=== PATIENT | male | born 1965 | race Caucasian/White ===

== ENCOUNTER → 2016-08-22 | Outpatient (CLI) | payer MEDICARE ==
[~2016-08-22] VITALS: Ht 185.4 cm; Wt 99.8 kg
[~2016-08-22] MED LIST: LIDOCAINE 2% INJ 100 MG/5 ML SDV (FOR ANES.) As Ordered ONE; NS 1,000 ML IV SCH; PROPOFOL 200 MG/20 ML VIAL As Ordered ONE
--- NOTE | 2016-08-22 09:59 | ROOR ---
Patient Name: Arsenio Sauer Procedure Date: 08/22/2016 9:37 AM Date of : 1965 Age: 50 Room: [facility] Gender: Male Note Status: Finalized Procedure: Colonoscopy to 60 cms(Aborted due to Poor Bowel Prep) Indications: High risk colon cancer surveillance: Personal history of colonic polyps, High risk colon cancer surveillance: Personal history of adenoma with high grade dysplasia Providers: Marcos Garces MD Referring MD: LYLY NIÑO NP Requesting Provider: Medicines: Monitored Anesthesia Care Complications: No immediate complications. Procedure: Pre-Anesthesia Assessment: - The heart rate, respiratory rate, oxygen saturations, blood pressure, adequacy of pulmonary ventilation, and response to care were monitored throughout the procedure. The Colonoscope was introduced through the anus with the intention of advancing to the cecum. The scope was advanced to the splenic flexure before the procedure was aborted. Medications were given. The colonoscopy was performed without difficulty. The patient tolerated the procedure well. The quality of the bowel preparation was inadequate. Findings: The perianal and digital rectal examinations were normal. Liquid stool was found in the rectum, in the recto-sigmoid colon, in the sigmoid colon and in the descending colon, precluding visualization. The exam was otherwise without abnormality. Impression: - Preparation of the colon was inadequate. - Stool in the rectum, in the recto-sigmoid colon, in the sigmoid colon and in the descending colon. - The examination was otherwise normal. - No specimens collected. - The procedure was aborted due to inadequate bowel prep. Recommendation: - Discharge patient to home. - Continue present medications. - Repeat colonoscopy in 1 year for surveillance. - Return to referring physician. - Continue present medications. - The findings and recommendations were discussed with the patient's family. Marcos Garces MD Marcos Garces MD 08/22/2016 9:58:59 AM This report has been signed electronically. Number of Addenda: 0 Note Initiated On: 08/22/2016 9:37 AM Estimated Blood Loss: Estimated blood loss: none.
[2016-08-22 10:35] VITALS: BP 135/97
== END ==
LOC: M OPP 08:34
PROVIDERS: ATTEND Internal Medicine Gastroenterology
DX: Z12.11 Encounter for screening for malignant neoplasm of colon (principal); Z86.010 Personal history of colon polyps; Z53.8 Procedure and treatment not carried out for other reasons; K64.9 Unspecified hemorrhoids; F17.200 Nicotine dependence, unspecified, uncomplicated; K21.9 Gastro-esophageal reflux disease without esophagitis; M54.2 Cervicalgia; G47.63 Sleep related bruxism

== ENCOUNTER 2016-09-18 11:36 | Inpatient (IN) | payer MEDICARE ==
[~2016-09-18] VITALS: Ht 185.4 cm; Wt 98.4 kg
[2016-09-18] VITALS (11 sets, daily range): BP systolic 110–126; BP diastolic 58–70
[2016-09-18] MEDS ORDERED: TRAM50TA2 PO (11:43)
[2016-09-18] MEDS ORDERED: LYRI100C10 PO (11:43)
[2016-09-18] MEDS ORDERED: ONDANSETRON 4MG/2ML VIAL (J2405) IV ONE (11:45)
[2016-09-18] MEDS ORDERED: PANTOPRAZOLE 40MG INJ (PROTONIX) (C9113) IV ONE (11:45)
[2016-09-18] MEDS ORDERED: NS 1,000 ML IV ONE ×2 (11:45→12:15)
[2016-09-18 11:52] LABS: BASO # 0.1 K/mm3 (0.0-0.2); BASO % 0.4 % (0.0-1.0); EOS # 0.2 K/mm3 (0.0-0.50); EOS % 1.4 % (0.0-3.0); LARGE UNSTAINED CELL # 0.3 K/mm3 (0.0-0.4); LARGE UNSTAINED CELL % 1.7 % (0.0-4.0); LYMPH # 7.1 K/mm3 (1.5-4.5); LYMPH % 45.7 % (24.0-44.0); MEAN CORPUSCULAR HEMOGLOBIN 31.7 pg (27.0-33.0); MEAN CORPUSCULAR HGB CONC 33.3 g/dl (32.0-36.5); MEAN CORPUSCULAR VOLUME 95.2 fl (80.0-96.0); MONO # 0.4 K/mm3 (0.0-0.8); MONO % 2.9 % (0.0-5.0); NEUTROPHILS # 7.2 K/mm3 (1.8-7.7); NEUTROPHILS % 47.9 % (36.0-66.0); PLATELET COUNT, AUTOMATED 289 k/mm3 (150-450); RED CELL DISTRIBUTION WIDTH 13.6 % (11.5-14.5)
[2016-09-18 11:59] LABS: INR 0.96
[2016-09-18] MEDS ORDERED: OCTREOTIDE ACETATE 50 MCG/ML VIAL (J2354) IV ONE (12:00)
[2016-09-18] MEDS: PANTOPRAZOLE SODIUM 40 MG in D5W MINI-BAG PLUS 50 ML IV SCH ×3 (12:00→22:10)
[2016-09-18 12:18] LABS: ALBUMIN 2.4 GM/DL (3.2-5.2); ALBUMIN/GLOBULIN RATIO 0.86 (1.00-1.93); ALKALINE PHOSPHATASE 63 U/L (45-117); ALT/SGPT 49 U/L (12-78); ANION GAP 7 MEQ/L (8-16); AST/SGOT 29 U/L (15-37); BILIRUBIN,DIRECT < 0.1 MG/DL (0.0-0.2); BILIRUBIN,TOTAL 0.2 MG/DL (0.2-1.0); BLOOD UREA NITROGEN 19 MG/DL (7-18); CALCIUM LEVEL 7.2 MG/DL (8.5-10.1); CARBON DIOXIDE LEVEL 25 MEQ/L (21-32); CHLORIDE LEVEL 109 MEQ/L (98-107); CREATININE FOR GFR 1.05 MG/DL (0.70-1.30); GLOMERULAR FILTRATION RATE > 60.0 (>56); GLUCOSE, FASTING 184 MG/DL (70-105); POTASSIUM SERUM 4.4 MEQ/L (3.5-5.1); SODIUM LEVEL 141 MEQ/L (136-145); TOTAL PROTEIN 5.2 GM/DL (6.4-8.2)
--- NOTE | 2016-09-18 13:45 | HPEPDOC ---
General Date of Admission 09/18/16 Primary Care Physician: Marleen Dinero Attending Physician: BEST JACOBSON MD Chief Complaint The patient is a 51-year-old male admitted with a reason for visit of Vomiting. Source: Patient, Family Exam Limitations: No limitations Timing/Duration: 1-3 hours Severity: Severe Associated Symptoms: Nausea, Vomiting (of bright red blood) History of Present Illness This is a 51-year-old gentleman, who is a patient of nurse practitioner Rosemary Dinero, who presents to the ER after vomiting profuse amounts of bright red blood. Patient states that this morning he felt slightly nauseated, sat down on the toilet, and then began vomiting profuse amounts of bright red blood. ER states that he presented covered in blood, with blood pressures in the 80s. He was started on octreotide and Protonix. He was transfused 2 units of pack red blood cells in the ER. His blood pressures increased to the 90s with fluid resuscitation. Dr. Garces was called urgently, and he will be performing an upper endoscopy today. Patient denies any history of heavy drinking, persistent , chronic abdominal pain, family history of arteriovenous malformations, history of Crohn's disease, or recent retching. Patient's states that he is generally healthy, and takes no medications. Patient confirms that he has no major chronic medical conditions, and denies substance use or history of gastrointestinal bleeding. Home Medications Scheduled PRN Pregabalin (Lyrica) 100 Mg Cap 100 MG PO BIDP PRN PRN PAIN (Reported) Tramadol HCl (Tramadol HCl) 50 Mg Tab 50 MG PO TID PRN PRN PAIN (Reported) Allergies Coded Allergies: No Known Allergies (Unverified , 01/18/13) Past Medical History Medical History Medical history: 1. Smoker 2. Degenerative disc disease 3. Chronic low back pain with sciatica Surgical History Surgical history: 1. Colonoscopy by Dr. Garces 2015 Family History Family history: Father: of suicide, history of epilepsy Mother: Daughter: Alive 2 sisters: One sister passed from lung cancer; the remaining sister healthy Social History * Smoker: current smoker Alcohol: Denies Drugs: denies Recent Travel/Sick Contacts: Denies: Recent sick contacts, Recent travel Psychosocial History: No pertinent psych hx Social history: 1. Smoker approximately quarter pack per day 2. Denies alcohol use 3. 4. On disability Review of Symptoms Constitutional: Denies: Chills, Fever, Malaise, Night Sweats, Weakness Eyes: Denies: Vision change ENT: Denies: Head Aches Skin: Denies: Breakdown, Bruising, Itching, Jaundice, Rash Pulmonary: Denies: Cough, Dyspnea, Pleuritic Chest Pain Cardiovascular: Reports: Lt Headedness, Denies: Chest Pain, Palpitations Gastrointestinal: Reports: Nausea, Vomiting (bright red blood), Denies: Abdominal Pain, Constipation, Diarrhea, Hematochezia, Melena Genitourinary: Denies: Dysuria, Frequency Other systems 10 point review systems is otherwise negative Physical Examination General Exam: Positive: Cooperative, Moderate Distress, Other (somnolent but arousable) Eye Exam: Positive: EOMI, PERRLA ENT Exam: Positive: Atraumatic, Mucous membr. moist/pink Neck Exam: Positive: Supple, Negative: JVD, thyromegaly Chest Exam: Positive: Clear to auscultation, Normal air movement, Negative: Rales, Rhonchi, Wheezing Heart Exam: Positive: Normal S1, Normal S2, Rate Normal, Regular Rhythm, Negative: Murmurs, Rubs Abdomen Exam: Positive: Normal bowel sounds, Soft, Negative: Hepatospenomegaly, Mass, Tenderness Extremity Exam: Negative: Clubbing, Cyanosis, Edema Skin Exam: Negative: Nl turgor and temperature (cold and clammy) Psych Exam: Positive: Oriented x 3, Negative: Mental status NL (somnolent but arousable; answers questions appropriately) Vital Signs Vital Signs Date Time Temp Pulse Resp B/P Pulse Ox O2 Delivery O2 Flow Rate FiO2 09/18/16 12:34 96.3 20 09/18/16 12:31 72 94 09/18/16 12:27 96/53 09/18/16 11:56 Room Air Laboratory Data Labs 24H Laboratory Tests 2 09/18/16 11:41: Activated Partial Thromboplast Time 23.0L, Aspartate Amino Transf (AST/SGOT) 29 , Alanine Aminotransferase (ALT/SGPT) 49, Alkaline Phosphatase 63, Total Bilirubin 0.2, Direct Bilirubin < 0.1, Albumin 2.4L, Albumin/Globulin Ratio 0.86L, Anion Gap 7L, White Blood Count 15.0H, Red Blood Count 3.78L, Hemoglobin 12.0L, Hematocrit 36.0L, Mean Corpuscular Volume 95.2, Mean Corpuscular Hemoglobin 31.7, Mean Corpuscular Hemoglobin Concent 33.3, Red Cell Distribution Width 13.6, Platelet Count 289, Neutrophils (%) (Auto) 47.9, Lymphocytes (%) (Auto) 45.7H, Monocytes (%) (Auto) 2.9, Eosinophils (%) (Auto) 1.4, Basophils (%) (Auto) 0.4, Neutrophils # (Auto) 7.2, Lymphocytes # (Auto) 7.1H, Monocytes # (Auto) 0.4, Eosinophils # (Auto) 0.2, Basophils # (Auto) 0.1, Calcium Level 7.2L, Creatine Kinase MB 1.0, Creatine Kinase MB Relative Index 1.69, Glomerular Filtration Rate > 60.0, Large Unclassified Cells # 0.3, Large Unclassified Cells % 1.7, Lipase 798H, Prothromb Time International Ratio 0.96, Prothrombin Time 12.9, Total Creatine Kinase 59, Total Protein 5.2L, Troponin I < 0.02 CBC/BMP Laboratory Tests 09/18/16 11:41 Red Blood Count 3.78 L, Mean Corpuscular Volume 95.2, Mean Corpuscular Hemoglobin 31.7, Mean Corpuscular Hemoglobin Concent 33.3, Red Cell Distribution Width 13.6, Neutrophils (%) (Auto) 47.9, Lymphocytes (%) (Auto) 45.7 H, Monocytes (%) (Auto) 2.9, Eosinophils (%) (Auto) 1.4, Basophils (%) ( Auto) 0.4, Neutrophils # (Auto) 7.2, Lymphocytes # (Auto) 7.1 H, Monocytes # ( Auto) 0.4, Eosinophils # (Auto) 0.2, Basophils # (Auto) 0.1 Problems (1) UGIB (upper gastrointestinal bleed) Status: Acute Problem Specific Plan: Consult Specialist Problem Text: Patiently with active upper GI bleed. [facility] has been contacted and will perform urgent upper endoscopy. Patient adamantly denies any alcohol use. He has no history of Crohn's disease or family history of Crohn's, which would make aortic fistula unlikely. No family history of AV malformations. No history of chronic abdominal pain, reflux, or history of gastric ulcers. Patient denies any substance use. Patient transfused 2 units packed red blood cells in the ER. Initial blood pressures in the 80s, however now stable in the low 100s. Hemoglobin on admission was 12, although likely much less than this, once patient is volume resuscitated. No widening of mediastinum on chest x-ray. -Admit to ICU due to hemodynamically unstable state -Every 6 hour CBC -Transfuse for active symptoms, hypotension, or hemoglobin less than 8 -Protonix drip -Octreotide drip -Upper endoscopy to be done by Dr. Garces this afternoon -Will send for CT angiogram if endoscopy is not revealing -Condition is guarded (2) Radiculopathy Status: Chronic Problem Text: Continue home Lyrica for radiculopathy (3) Low back pain Status: Chronic Problem Text: Continue home tramadol for chronic low back pain Plan / VTE VTE Prophylaxis Ordered?: No VTE Exclusion Pharmacological: Bleeding Risk BEST JACOBSON MD Sep 18, 2016 13:44
--- NOTE | 2016-09-18 14:21 | REP ---
AP PORTABLE CHEST: 09/18/2016. Comparison: 01/20/2015, 08/19/2005 chest x-ray. Clinical history: Preoperative chest. Findings: Single portable view shows the lung anderson well inflated without pleural effusion, acute infiltrate, atelectasis or mass. Heart, mediastinal, and hilar contours are normal. Airway is intact. The bony thorax shows no focal lesion. Impression: 1. No acute cardiopulmonary change. Signed by Jeremy Jorge MD 09/18/2016 07:32 P
[2016-09-18] MEDS ORDERED: ONDANSETRON 4MG/2ML VIAL (J2405) As Ordered ONE (14:23)
[2016-09-18] MEDS ORDERED: MIDAZOLAM INJ 2 MG/2 ML VIAL (J2250) As Ordered ONE (14:23)
[2016-09-18] MEDS ORDERED: PROPOFOL 200 MG/20 ML VIAL As Ordered ONE (14:23)
[2016-09-18] MEDS ORDERED: fentaNYL 100 MCG/2 ML INJECTION (J3010) As Ordered ONE (14:23)
[2016-09-18] MEDS ORDERED: METOCLOPRAMIDE INJ 10MG/2ML VIAL (J2765) As Ordered ONE (14:23)
[2016-09-18] MEDS ORDERED: LIDOCAINE 2% INJ 100 MG/5 ML SDV (FOR ANES.) As Ordered ONE (14:24)
[2016-09-18] MEDS ORDERED: SUCCINYLCHOLINE 100 MG/5 ML SYRINGE (J0330) As Ordered ONE (14:24)
[2016-09-18] MEDS ORDERED: PHENYLephrine HCL 500 MCG/5 ML (100MCG/ML) SYRINGE (J2370) As Ordered ONE (14:24)
[2016-09-18] MEDS ORDERED: OCTREOTIDE ACETATE 1,200 MCG in NS 238.8 ML IV SCH (14:30)
[2016-09-18] MEDS ORDERED: ONDANSETRON 4MG/2ML VIAL (J2405) IV PRN (15:15)
[2016-09-18] MEDS ORDERED: LR 1,000 ML IV SCH (15:15)
[2016-09-18 17:40] LABS: BASO % 0.2 % (0.0-1.0); EOS % 0.4 % (0.0-3.0); LARGE UNSTAINED CELL # 0.1 K/mm3 (0.0-0.4); LARGE UNSTAINED CELL % 0.9 % (0.0-4.0); LYMPH # 2.6 K/mm3 (1.5-4.5); LYMPH % 21.4 % (24.0-44.0); MEAN CORPUSCULAR HEMOGLOBIN 31.1 pg (27.0-33.0); MEAN CORPUSCULAR HGB CONC 33.6 g/dl (32.0-36.5); MEAN CORPUSCULAR VOLUME 92.5 fl (80.0-96.0); MONO # 0.3 K/mm3 (0.0-0.8); MONO % 2.8 % (0.0-5.0); NEUTROPHILS # 8.7 K/mm3 (1.8-7.7); NEUTROPHILS % 74.4 % (36.0-66.0); PLATELET COUNT, AUTOMATED 199 k/mm3 (150-450); RED CELL DISTRIBUTION WIDTH 13.7 % (11.5-14.5); WHITE BLOOD COUNT 11.7 K/mm3 (4.0-10.0)
[2016-09-18] MEDS ORDERED: KETOROLAC 30 MG/ML VIAL (J1885) As Ordered ONE (18:01)
[2016-09-18] MEDS: KETOROLAC 30 MG/ML VIAL (J1885) IV PRN (18:03)
--- NOTE | 2016-09-18 21:12 | ECGEPIP ---
Stationary ECG Study [facility] - ED Test Date: 2016-09-18 Pat Name: JARED LANDEROS Department: Room: - Gender: M C Software Engineer: scottie : 1965 Requested By: Demetrio Lock Order Number: [id number] Reading MD: Viridiana Ann Measurements Intervals Caroleen Rate: 74 P: 63 IN: 136 QRS: 51 QRSD: 90 T: 47 QT: 364 QTc: 404 Interpretive Statements SINUS RHYTHM NO PRIOR FOR COMPARISON Electronically Signed On 09-18-2016 21:12:02 EDT by Viridiana Ann
[2016-09-18 23:41] LABS: BASO % 0.2 % (0.0-1.0); EOS # 0.1 K/mm3 (0.0-0.50); EOS % 0.7 % (0.0-3.0); LARGE UNSTAINED CELL # 0.1 K/mm3 (0.0-0.4); LYMPH % 22.2 % (24.0-44.0); MEAN CORPUSCULAR HEMOGLOBIN 30.9 pg (27.0-33.0); MEAN CORPUSCULAR HGB CONC 33.5 g/dl (32.0-36.5); MEAN CORPUSCULAR VOLUME 92.2 fl (80.0-96.0); MONO # 0.4 K/mm3 (0.0-0.8); NEUTROPHILS # 9.4 K/mm3 (1.8-7.7); NEUTROPHILS % 72.9 % (36.0-66.0); PLATELET COUNT, AUTOMATED 194 k/mm3 (150-450); RED CELL DISTRIBUTION WIDTH 13.8 % (11.5-14.5); WHITE BLOOD COUNT 12.9 K/mm3 (4.0-10.0)
[2016-09-19] VITALS (9 sets, daily range): BP systolic 118–147; BP diastolic 57–71
[2016-09-19] MEDS: KETOROLAC 30 MG/ML VIAL (J1885) IV PRN ×3 (00:09→16:49)
[2016-09-19] MEDS: PANTOPRAZOLE SODIUM 40 MG in D5W MINI-BAG PLUS 50 ML IV SCH ×4 (03:35→16:49)
[2016-09-19 05:20] LABS: ALBUMIN 2.5 GM/DL (3.2-5.2); ALBUMIN/GLOBULIN RATIO 0.93 (1.00-1.93); ALKALINE PHOSPHATASE 57 U/L (45-117); ALT/SGPT 51 U/L (12-78); ANION GAP 9 MEQ/L (8-16); AST/SGOT 33 U/L (15-37); BILIRUBIN,TOTAL 0.2 MG/DL (0.2-1.0); CALCIUM LEVEL 7.2 MG/DL (8.5-10.1); CARBON DIOXIDE LEVEL 26 MEQ/L (21-32); CHLORIDE LEVEL 107 MEQ/L (98-107); GLOMERULAR FILTRATION RATE > 60.0 (>56); GLUCOSE, FASTING 86 MG/DL (70-105); POTASSIUM SERUM 3.9 MEQ/L (3.5-5.1); SODIUM LEVEL 142 MEQ/L (136-145); TOTAL PROTEIN 5.2 GM/DL (6.4-8.2)
[2016-09-19 05:28] LABS: BLOOD UREA NITROGEN 45 MG/DL (7-18)
[2016-09-19 05:34] LABS: BASO % 0.2 % (0.0-1.0); EOS # 0.1 K/mm3 (0.0-0.50); EOS % 1.1 % (0.0-3.0); LARGE UNSTAINED CELL # 0.2 K/mm3 (0.0-0.4); LARGE UNSTAINED CELL % 1.3 % (0.0-4.0); LYMPH # 4.7 K/mm3 (1.5-4.5); LYMPH % 33.7 % (24.0-44.0); MEAN CORPUSCULAR HEMOGLOBIN 31.2 pg (27.0-33.0); MEAN CORPUSCULAR HGB CONC 33.7 g/dl (32.0-36.5); MEAN CORPUSCULAR VOLUME 92.4 fl (80.0-96.0); MONO # 0.4 K/mm3 (0.0-0.8); MONO % 3.1 % (0.0-5.0); NEUTROPHILS # 8.1 K/mm3 (1.8-7.7); NEUTROPHILS % 60.6 % (36.0-66.0); PLATELET COUNT, AUTOMATED 193 k/mm3 (150-450); RED CELL DISTRIBUTION WIDTH 13.8 % (11.5-14.5); WHITE BLOOD COUNT 13.4 K/mm3 (4.0-10.0)
--- NOTE | 2016-09-19 08:35 | ROOR ---
Patient Name: Arsenio Sauer Procedure Date: 09/18/2016 1:44 PM Date of : 1965 Age: 51 Gender: Male Note Status: Closing Agent Override Procedure: Upper GI endoscopy + Hemoclips. Indications: Active gastrointestinal bleeding Providers: Marcos Garces MD Referring MD: 1. No Referring Physician 1. No Referring Physician, Admin. Requesting Provider: Medicines: General Anesthesia Complications: No immediate complications. Procedure: Pre-Anesthesia Assessment: - The heart rate, respiratory rate, oxygen saturations, blood pressure, adequacy of pulmonary ventilation, and response to care were monitored throughout the procedure. The Endoscope was introduced through the mouth, and advanced to the second part of duodenum. The upper GI endoscopy was accomplished without difficulty. The patient tolerated the procedure well. Findings: The Z-line was regular and was found 40 cm from the incisors. Clotted blood was found in the cardia and in the gastric fundus. One non-bleeding cratered gastric ulcer with adherent clot was found in the gastric fundus. For hemostasis, two hemostatic clips were successfully placed (MR conditional). There was no bleeding at the end of the procedure. The exam of the duodenum was otherwise normal. Impression: - Z-line regular, 40 cm from the incisors. - Clotted blood in the cardia and in the gastric fundus. - Non-bleeding gastric ulcer with adherent clot. Clips (MR conditional) were placed. - No specimens collected. Recommendation: - Return patient to ICU for ongoing care. - Continue present medications. - The findings and recommendations were discussed with the patient's family. Marcos Garces MD Marcos Garces MD 09/18/2016 3:00:43 PM This report has been signed electronically. Number of Addenda: 0 Note Initiated On: 09/18/2016 1:44 PM Estimated Blood Loss: Estimated blood loss: none.
[2016-09-19 11:31] LABS: BASO % 0.2 % (0.0-1.0); EOS # 0.2 K/mm3 (0.0-0.50); EOS % 1.7 % (0.0-3.0); LARGE UNSTAINED CELL # 0.1 K/mm3 (0.0-0.4); LARGE UNSTAINED CELL % 1.2 % (0.0-4.0); LYMPH # 3.3 K/mm3 (1.5-4.5); LYMPH % 33.4 % (24.0-44.0); MEAN CORPUSCULAR HEMOGLOBIN 31.1 pg (27.0-33.0); MEAN CORPUSCULAR HGB CONC 34.5 g/dl (32.0-36.5); MEAN CORPUSCULAR VOLUME 90.1 fl (80.0-96.0); MONO # 0.3 K/mm3 (0.0-0.8); MONO % 2.8 % (0.0-5.0); NEUTROPHILS # 5.9 K/mm3 (1.8-7.7); NEUTROPHILS % 60.7 % (36.0-66.0); PLATELET COUNT, AUTOMATED 190 k/mm3 (150-450); RED CELL DISTRIBUTION WIDTH 13.6 % (11.5-14.5); WHITE BLOOD COUNT 9.7 K/mm3 (4.0-10.0)
[2016-09-19 17:02] LABS: BASO % 0.2 % (0.0-1.0); EOS # 0.2 K/mm3 (0.0-0.50); EOS % 1.7 % (0.0-3.0); LARGE UNSTAINED CELL # 0.1 K/mm3 (0.0-0.4); LARGE UNSTAINED CELL % 1.5 % (0.0-4.0); LYMPH # 3.7 K/mm3 (1.5-4.5); LYMPH % 39.9 % (24.0-44.0); MEAN CORPUSCULAR HEMOGLOBIN 31.3 pg (27.0-33.0); MEAN CORPUSCULAR HGB CONC 34.8 g/dl (32.0-36.5); MEAN CORPUSCULAR VOLUME 89.9 fl (80.0-96.0); MONO # 0.2 K/mm3 (0.0-0.8); MONO % 2.7 % (0.0-5.0); NEUTROPHILS # 4.8 K/mm3 (1.8-7.7); PLATELET COUNT, AUTOMATED 196 k/mm3 (150-450); RED CELL DISTRIBUTION WIDTH 13.6 % (11.5-14.5); WHITE BLOOD COUNT 8.9 K/mm3 (4.0-10.0)
[2016-09-19] MEDS ORDERED: traMADol 50 MG TAB PO PRN (17:30)
--- NOTE | 2016-09-19 17:30 | IPNPDOC ---
Subjective Date Seen The patient was seen on 09/19/16. Subjective Chief Complaint/HPI The patient is a 51-year-old male admitted with a reason for visit of Gi Bleeding. Events since last encounter Patient is doing well after EGD, and clipping of gastric ulcer. Patient states he feels well. He has been tolerating a diet. Constitutional: Denies: Chills, Fever, Malaise Skin: Denies: Rash Pulmonary: Denies: Cough, Dyspnea Cardiovascular: Denies: Chest Pain, Lt Headedness, Orthopnea, Palpitations Gastrointestinal: Denies: Abdominal Pain, Constipation, Diarrhea, Hematochezia , Melena, Nausea, Vomiting Other systems 10 point review systems otherwise negative Objective Physical Examination General Exam: Positive: Cooperative, No Acute Distress Eye Exam: Positive: EOMI, PERRLA ENT Exam: Positive: Atraumatic, Mucous membr. moist/pink Neck Exam: Positive: Supple, Negative: JVD, thyromegaly Chest Exam: Positive: Clear to auscultation, Normal air movement, Negative: Rales, Rhonchi, Wheezing Heart Exam: Positive: Normal S1, Normal S2, Rate Normal, Regular Rhythm, Negative: Murmurs, Rubs Abdomen Exam: Positive: Normal bowel sounds, Soft, Negative: Hepatospenomegaly, Mass, Tenderness Extremity Exam: Negative: Clubbing, Cyanosis, Edema Skin Exam: Positive: Nl turgor and temperature Psych Exam: Positive: Mental status NL, Oriented x 3 Assessment /Plan Problems (1) UGIB (upper gastrointestinal bleed) Status: Acute Problem Specific Plan: Consult Specialist Problem Text: Patiently admitted 09/18/2016 with active upper GI bleed. Dr. Garces performed endoscopy, and clipped a gastric ulcer. Bleeding since resolved. Patient denies any current symptoms. -Transfer to floor -Oral Protonix -Plan for discharge home tomorrow if hemoglobin is stable and no active signs of bleeding (2) Radiculopathy Status: Chronic Problem Text: Continue home Lyrica for radiculopathy (3) Low back pain Status: Chronic Problem Text: Continue home tramadol for chronic low back pain Plan/VTE VTE Prophylaxis Ordered?: No VTE Exclusion Pharmacological: Bleeding Risk Disposition Home 09/20/16 if hemoglobin stable and no active signs of bleeding VS, I&O, 24H, Fishbone Vital Signs/I&O Vital Signs Date Time Temp Pulse Resp B/P Pulse Ox O2 Delivery O2 Flow Rate FiO2 09/19/16 12:00 98.9 92 20 133/60 97 Room Air I&O- Last 24 Hours up to 6 AM 09/19/16 06:00 Intake Total 2698 ml Output Total 860 ml Balance 1838 ml Laboratory Data 24H LABS Laboratory Tests 2 09/18/16 23:05: White Blood Count 12.9H, Red Blood Count 3.41L, Hemoglobin 10.5L, Hematocrit 31.4L, Mean Corpuscular Volume 92.2, Mean Corpuscular Hemoglobin 30.9, Mean Corpuscular Hemoglobin Concent 33.5, Red Cell Distribution Width 13.8, Platelet Count 194, Neutrophils (%) (Auto) 72.9H, Lymphocytes (%) (Auto) 22.2L, Monocytes (%) (Auto) 3.0, Eosinophils (%) (Auto) 0.7, Basophils (%) (Auto) 0.2, Neutrophils # (Auto) 9.4H, Lymphocytes # (Auto) 3.0, Monocytes # (Auto) 0.4, Eosinophils # (Auto) 0.1, Basophils # (Auto) 0.0, Large Unclassified Cells # 0.1 , Large Unclassified Cells % 1.0 09/19/16 04:29: White Blood Count 13.4H, Red Blood Count 3.33L, Hemoglobin 10.4L, Hematocrit 30.7L, Mean Corpuscular Volume 92.4, Mean Corpuscular Hemoglobin 31.2, Mean Corpuscular Hemoglobin Concent 33.7, Red Cell Distribution Width 13.8, Platelet Count 193, Neutrophils (%) (Auto) 60.6, Lymphocytes (%) (Auto) 33.7, Monocytes ( %) (Auto) 3.1, Eosinophils (%) (Auto) 1.1, Basophils (%) (Auto) 0.2, Neutrophils # (Auto) 8.1H, Lymphocytes # (Auto) 4.7H, Monocytes # (Auto) 0.4, Eosinophils # (Auto) 0.1, Basophils # (Auto) 0.0, Large Unclassified Cells # 0.2 , Large Unclassified Cells % 1.3, Blood Urea Nitrogen 45#H, Creatinine 0.80, Sodium Level 142, Potassium Level 3.9, Chloride Level 107, Carbon Dioxide Level 26, Calcium Level 7.2L, Aspartate Amino Transf (AST/SGOT) 33, Alanine Aminotransferase (ALT/SGPT) 51, Alkaline Phosphatase 57, Total Bilirubin 0.2, Total Protein 5.2L, Albumin 2.5L, Albumin/Globulin Ratio 0.93L, Anion Gap 9, Glomerular Filtration Rate > 60.0 09/19/16 11:19: White Blood Count 9.7, Red Blood Count 3.35L, Hemoglobin 10.4L, Hematocrit 30.2L , Mean Corpuscular Volume 90.1, Mean Corpuscular Hemoglobin 31.1, Mean Corpuscular Hemoglobin Concent 34.5, Red Cell Distribution Width 13.6, Platelet Count 190, Neutrophils (%) (Auto) 60.7, Lymphocytes (%) (Auto) 33.4, Monocytes ( %) (Auto) 2.8, Eosinophils (%) (Auto) 1.7, Basophils (%) (Auto) 0.2, Neutrophils # (Auto) 5.9, Lymphocytes # (Auto) 3.3, Monocytes # (Auto) 0.3, Eosinophils # (Auto) 0.2, Basophils # (Auto) 0.0, Large Unclassified Cells # 0.1 , Large Unclassified Cells % 1.2 09/19/16 16:52: White Blood Count 8.9, Red Blood Count 3.23L, Hemoglobin 10.1L, Hematocrit 29.0L , Mean Corpuscular Volume 89.9, Mean Corpuscular Hemoglobin 31.3, Mean Corpuscular Hemoglobin Concent 34.8, Red Cell Distribution Width 13.6, Platelet Count 196, Neutrophils (%) (Auto) 54.0, Lymphocytes (%) (Auto) 39.9, Monocytes ( %) (Auto) 2.7, Eosinophils (%) (Auto) 1.7, Basophils (%) (Auto) 0.2, Neutrophils # (Auto) 4.8, Lymphocytes # (Auto) 3.7, Monocytes # (Auto) 0.2, Eosinophils # (Auto) 0.2, Basophils # (Auto) 0.0, Large Unclassified Cells # 0.1 , Large Unclassified Cells % 1.5 CBC/BMP Laboratory Tests 09/18/16 23:05 Red Blood Count 3.41 L, Mean Corpuscular Volume 92.2, Mean Corpuscular Hemoglobin 30.9, Mean Corpuscular Hemoglobin Concent 33.5, Red Cell Distribution Width 13.8, Neutrophils (%) (Auto) 72.9 H, Lymphocytes (%) (Auto) 22.2 L, Monocytes (%) (Auto) 3.0, Eosinophils (%) (Auto) 0.7, Basophils (%) ( Auto) 0.2, Neutrophils # (Auto) 9.4 H, Lymphocytes # (Auto) 3.0, Monocytes # ( Auto) 0.4, Eosinophils # (Auto) 0.1, Basophils # (Auto) 0.0 09/19/16 04:29 Red Blood Count 3.33 L, Mean Corpuscular Volume 92.4, Mean Corpuscular Hemoglobin 31.2, Mean Corpuscular Hemoglobin Concent 33.7, Red Cell Distribution Width 13.8, Neutrophils (%) (Auto) 60.6, Lymphocytes (%) (Auto) 33.7, Monocytes (%) (Auto) 3.1, Eosinophils (%) (Auto) 1.1, Basophils (%) (Auto ) 0.2, Neutrophils # (Auto) 8.1 H, Lymphocytes # (Auto) 4.7 H, Monocytes # (Auto ) 0.4, Eosinophils # (Auto) 0.1, Basophils # (Auto) 0.0, Calcium Level 7.2 L, Aspartate Amino Transf (AST/SGOT) 33, Alanine Aminotransferase (ALT/SGPT) 51, Alkaline Phosphatase 57, Total Bilirubin 0.2, Total Protein 5.2 L, Albumin 2.5 L 09/19/16 11:19 Red Blood Count 3.35 L, Mean Corpuscular Volume 90.1, Mean Corpuscular Hemoglobin 31.1, Mean Corpuscular Hemoglobin Concent 34.5, Red Cell Distribution Width 13.6, Neutrophils (%) (Auto) 60.7, Lymphocytes (%) (Auto) 33.4, Monocytes (%) (Auto) 2.8, Eosinophils (%) (Auto) 1.7, Basophils (%) (Auto ) 0.2, Neutrophils # (Auto) 5.9, Lymphocytes # (Auto) 3.3, Monocytes # (Auto) 0.3, Eosinophils # (Auto) 0.2, Basophils # (Auto) 0.0 09/19/16 16:52 Red Blood Count 3.23 L, Mean Corpuscular Volume 89.9, Mean Corpuscular Hemoglobin 31.3, Mean Corpuscular Hemoglobin Concent 34.8, Red Cell Distribution Width 13.6, Neutrophils (%) (Auto) 54.0, Lymphocytes (%) (Auto) 39.9, Monocytes (%) (Auto) 2.7, Eosinophils (%) (Auto) 1.7, Basophils (%) (Auto ) 0.2, Neutrophils # (Auto) 4.8, Lymphocytes # (Auto) 3.7, Monocytes # (Auto) 0.2, Eosinophils # (Auto) 0.2, Basophils # (Auto) 0.0 BEST JACOBSON MD Sep 19, 2016 17:29
[2016-09-19] MEDS: PREGABALIN 100 MG CAP (LYRICA) PO PRN (18:45)
[2016-09-19] MEDS: PANTOPRAZOLE 40MG TAB (PROTONIX) PO SCH (21:35)
[2016-09-20 04:00] VITALS: BP 108/64
[2016-09-20] MEDS: PREGABALIN 100 MG CAP (LYRICA) PO PRN (06:21)
[2016-09-20 07:45] LABS: ANION GAP 8 MEQ/L (8-16); BLOOD UREA NITROGEN 27 MG/DL (7-18); CARBON DIOXIDE LEVEL 26 MEQ/L (21-32); CHLORIDE LEVEL 107 MEQ/L (98-107); CREATININE FOR GFR 0.83 MG/DL (0.70-1.30); GLOMERULAR FILTRATION RATE > 60.0 (>56); GLUCOSE, FASTING 89 MG/DL (70-105); SODIUM LEVEL 141 MEQ/L (136-145)
[2016-09-20 08:00] VITALS: BP 124/73
--- NOTE | 2016-09-20 08:36 | DSES ---
DATE OF ADMISSION: 09/18/2016 DATE OF DISCHARGE: 09/20/2016 PRIMARY CARE PROVIDER: Marleen Dinero NP ATTENDING PHYSICIAN: Dr. Toby Diaz HISTORY OF PRESENT ILLNESS: 51-year-old gentleman who presented to the emergency room after vomiting profuse amounts of bright red blood along with some significant amount of nausea. Blood pressures upon presentation in the emergency department showed systolic numbers in the 80s. The patient was placed on octreotide and Protonix and given two units of packed red cells in the emergency room. Blood pressure subsequently continued to improve. The patient was admitted. HOSPITAL COURSE: The patient is status post upper endoscopy with hemoclips completed by Dr. Marcos Garces. The patient was transferred to the intensive care unit (ICU) for monitoring and then subsequently transferred to the pediatrics unit after stabilization. For the last 24 hours, the patient has tolerated by mouth food and fluids well. Blood pressures have remained stable. Denies vomiting. Denies nausea. Denies melena. Denies abdominal pain. He is anxious to return home. On physical exam, blood pressure 108/64, temperature 97.9, heart rate 75, respiratory rate 20, oxygen saturation 97% on room air. HEENT: Neck is supple, without lymphadenopathy or jugular venous distention. CARDIOVASCULAR: Heart rate and rhythm are regular. PULMONARY: Lungs clear to auscultation bilaterally. ABDOMEN: Soft. Nontender. Positive bowel sounds times all four quadrants. BILATERAL LOWER EXTREMITIES: Without any edema. ASSESSMENT: Upper gastrointestinal (GI) bleed. 1. Status post upper endoscopy with hemoclips. 2. History of radiculopathy. 3. History of chronic back pain. PLAN: The patient will be discharged home. Activities as tolerated. Diet is as tolerated. He will follow up with his primary care provider within the next 7 days. He should followup with Dr. Garces within the next 2-4 weeks. MEDICATIONS (are as follows: - Lyrica 100 mg by mouth twice a day as needed pain - tramadol 50 mg by mouth three times a day as needed pain - Protonix 40 mg po daily The patient is discharged in stable and satisfactory condition with no further questions at the time of discharge. Attending note: I saw and evaluated the patient on the day of discharge, and I agree with the discharge plan of care. Pt discharged on PPI with planned followup to GI. MD MERLE Guerrero
[2016-09-20] MEDS: PANTOPRAZOLE 40MG TAB (PROTONIX) PO SCH (08:39)
[2016-09-20] MEDS ORDERED: NICOTINE 14 MG/24 HR TRANSDERMAL TD SCH (09:00)
[2016-09-20] MEDS ORDERED: OMEP40CA2 PO (09:59)
--- NOTE | 2016-09-20 19:53 | CR ---
DATE OF CONSULTATION: 09/20/2016 CONSULTING PHYSICIAN: Marcos Garces MD This is a 51-year-old white male known to me who presents to the emergency room with sudden onset of hematemesis of unknown etiology. The patient was last seen by myself for routine screening colonoscopy. The patient had some tubulovillous adenomas which were removed. He has no complaints of abdominal pain, weight loss, change in bowel habits, or early satiety. The patient denied initially any history of nonsteroidal anti-inflammatory drug (NSAID), aspirin or anticoagulation medications. However, upon further questioning the patient has been taking Excedrin migraine headache pills which I believe has aspirin in it; aspirin, caffeine and Tylenol. Again he was on the toilet and suddenly started vomiting up fresh blood. He had no episodes of melena, hematochezia, or bright red blood per rectum. He presented to the emergency room, and I was consulted to see the patient for an urgent upper endoscopy. MEDICATIONS: Positive for tramadol and Lyrica. ALLERGIES: No known declared allergies. PAST MEDICAL HISTORY: Positive for chronic low-back pain. He is a smoker and has degenerative disc disease. PAST SURGICAL HISTORY: Noncontributory. FAMILY HISTORY: Noncontributory to above problem. REVIEW OF SYSTEMS: Negative to the above problem. PHYSICAL EXAMINATION: GENERAL: He is a well-developed, well-nourished white male in no obvious acute distress who appears stated age. Chest was clear to auscultation and percussion. Cardiovascular: Heart is in a regular rhythm. No murmurs or gallops. Normal physiological split, S1, S2. Abdomen: Soft, nontender. No masses, guarding, rebound. Bowel sounds positive. LABORATORY STUDIES ON ADMISSION: Showed a hemoglobin 12.0 and 36.0. The patient was given two units of packed red cells in the emergency room. His counts equilibrated down to 10.1 and 29.0. Chemistry was completely normal. Lipase was elevated to 798. ANALYSIS: Lower GI bleed of unknown etiology, probably secondary to nonsteroidal anti-inflammatory drug (NSAID) induced gastropathy due to the Excedrin migraine pills. PLAN: Will be to set the patient up for an emergent upper endoscopy to find the source of bleeding and attempt to control the bleeding either with heater probe or injection therapy or hemoclips.
== END 2016-09-20 10:25 | disposition home or self-care (01) | DRG 379 ==
LOC: M ED 11:57 → M SDC 13:43 → M PED 13:45 → M ICU 15:55 → M SDC 15:55 → M ICU 09-19 17:49 → M MSPAV 09-19 17:49 → M PED 09-20 03:10 → UNDOFXSDCACCOM 09-20 03:10 → UNDOFXSDCSVC 09-20 03:10 → M SDC 09-20 03:11 → M PED 09-20 03:11 → M SDC 09-20 10:25
PROVIDERS: ADMIT Family Medicine; ATTEND Family Medicine
PROC: 30253N1 (ICD-10-PCS; 2016-09-18)
PROC: 0W3P8ZZ Control Bleeding in Gastrointestinal Tract, Via Natural or Artificial Opening Endoscopic (ICD-10-PCS; principal; 2016-09-18 13:17)
DX: K25.0 Acute gastric ulcer with hemorrhage (principal); F17.210 Nicotine dependence, cigarettes, uncomplicated; M54.40 Lumbago with sciatica, unspecified side; Z79.891 Long term (current) use of opiate analgesic; Z79.899 Other long term (current) drug therapy

== ENCOUNTER → 2017-07-12 | Outpatient (CLI) | payer MEDICARE ==
[2017-07-12 16:52] LABS: BASO # 0.1 10^3/uL (0.0-0.2); BASO % 0.4 % (0.0-1.0); EOS # 0.1 10^3/uL (0.0-0.50); EOS % 1.1 % (0.0-3.0); HEMATOCRIT 39.8 % (42.0-52.0); HEMOGLOBIN 13.2 g/dl (14.0-18.0); IMMATURE GRANULOCYTE # 0.1 10^3/uL (0-0); IMMATURE GRANULOCYTE % 0.4 % (0-0); LYMPH # 4.4 10^3/uL (1.5-4.5); LYMPH % 36.6 % (24.0-44.0); MEAN CORPUSCULAR HEMOGLOBIN 25.3 pg (27.0-33.0); MEAN CORPUSCULAR HGB CONC 33.2 g/dl (32.0-36.5); MEAN CORPUSCULAR VOLUME 76.2 fl (80.0-96.0); MONO # 0.4 10^3/uL (0.0-0.8); MONO % 3.4 % (0.0-5.0); NEUTROPHILS # 6.9 10^3/uL (1.8-7.7); NEUTROPHILS % 58.1 % (36.0-66.0); PLATELET COUNT, AUTOMATED 206 10^3/uL (150-450); RED BLOOD COUNT 5.22 10^6/uL (4.30-6.10); RED CELL DISTRIBUTION WIDTH 21.2 % (11.5-14.5); WHITE BLOOD COUNT 11.9 10^3/uL (4.0-10.0)
[2017-07-12 17:51] LABS: ALBUMIN 3.6 GM/DL (3.2-5.2); ALKALINE PHOSPHATASE 101 U/L (45-117); ALT/SGPT 36 U/L (12-78); ANION GAP 7 MEQ/L (8-16); AST/SGOT 22 U/L (7-37); BILIRUBIN,TOTAL 0.3 MG/DL (0.2-1.0); BLOOD UREA NITROGEN 16 MG/DL (7-18); CALCIUM LEVEL 8.5 MG/DL (8.5-10.1); CARBON DIOXIDE LEVEL 26 MEQ/L (21-32); CHLORIDE LEVEL 106 MEQ/L (98-107); CHOLESTEROL LEVEL 303 MG/DL (<200); CHOLESTEROL RISK RATIO 8.657 (<5); CREATININE FOR GFR 0.86 MG/DL (0.70-1.30); FREE T4 0.99 NG/DL (0.76-1.46); GLOMERULAR FILTRATION RATE > 60.0 (>56); GLUCOSE, FASTING 74 MG/DL (70-100); HDL CHOLESTEROL 35 MG/DL (>40); LDL CHOLESTEROL 224.2 MG/DL (<100); NON-HDL-C 268 MG/DL; POTASSIUM SERUM 3.9 MEQ/L (3.5-5.1); SODIUM LEVEL 139 MEQ/L (136-145); TOTAL PROTEIN 7.2 GM/DL (6.4-8.2); TRIGLYCERIDES LEVEL 219 MG/DL (<150)
== END ==
LOC: M LAB 16:00
DX: R03.0 Elevated blood-pressure reading, without diagnosis of hypertension (principal); F17.200 Nicotine dependence, unspecified, uncomplicated; Z79.899 Other long term (current) drug therapy
CPT/HCPCS: 84443

== ENCOUNTER → 2017-08-08 | Outpatient (REF) | payer MEDICARE ==
[2017-08-08 17:18] LABS: FERRITIN 9 NG/ML (26-388); IRON (FE) 33 UG/DL (65-175); TOTAL IRON BINDING CAPACITY 553 UG/DL (250-450)
[2017-08-08 17:24] LABS: VITAMIN B12 LEVEL 942 PG/ML (247-911)
[2017-08-08 17:25] LABS: FOLATE 10.3 NG/ML (>5.4)
== END ==
LOC: M SFHCCLAY 10:19
DX: D64.9 Anemia, unspecified (principal)
CPT/HCPCS: 82746

== ENCOUNTER 2017-10-21 22:05 | Emergency (ER) | payer MEDICARE | END 2017-10-21 22:09 | disposition left against medical advice (07) | LOC: M ED 22:05 | DX: Z53.29 Procedure and treatment not carried out because of patient's decision for other reasons (principal) ==

== ENCOUNTER 2017-11-14 16:58 | Emergency (ER) | payer MEDICARE | END 2017-11-14 18:26 | disposition home or self-care (01) | LOC: M ED 16:58 | DX: K04.7 Periapical abscess without sinus (principal); K02.9 Dental caries, unspecified; F17.200 Nicotine dependence, unspecified, uncomplicated; Z79.899 Other long term (current) drug therapy | CPT/HCPCS: 99282 ==

== ENCOUNTER → 2017-12-12 | Outpatient (REF) | payer MEDICARE ==
[2017-12-12 17:22] LABS: BASO # 0.1 10^3/uL (0.0-0.2); BASO % 0.5 % (0.0-1.0); EOS # 0.1 10^3/uL (0.0-0.50); EOS % 1.2 % (0.0-3.0); HEMATOCRIT 47.6 % (42.0-52.0); HEMOGLOBIN 16.2 g/dl (13.5-17.5); IMMATURE GRANULOCYTE % 0.5 % (0-3.0); LYMPH # 4.4 10^3/uL (1.5-4.5); LYMPH % 41.5 % (24.0-44.0); MEAN CORPUSCULAR VOLUME 82.2 fl (80.0-96.0); MONO # 0.6 10^3/uL (0.0-0.8); MONO % 5.6 % (0.0-5.0); NEUTROPHILS # 5.4 10^3/uL (1.8-7.7); NEUTROPHILS % 50.7 % (36.0-66.0); PLATELET COUNT, AUTOMATED 192 10^3/uL (150-450); RED BLOOD COUNT 5.79 10^6/uL (4.30-6.10); RED CELL DISTRIBUTION WIDTH 19.5 % (11.5-14.5); WHITE BLOOD COUNT 10.6 10^3/uL (4.0-10.0)
[2017-12-12 17:24] LABS: ADD MORPHOLOGY? YES; POSITIVE MORPH POS FLAG
[2017-12-12 17:32] LABS: ALBUMIN 3.8 GM/DL (3.2-5.2); ALBUMIN/GLOBULIN RATIO 1.12 (1.00-1.93); ALKALINE PHOSPHATASE 93 U/L (45-117); ALT/SGPT 22 U/L (12-78); ANION GAP 11 MEQ/L (8-16); AST/SGOT 21 U/L (7-37); BILIRUBIN,TOTAL 0.4 MG/DL (0.2-1.0); BLOOD UREA NITROGEN 11 MG/DL (7-18); CALCIUM LEVEL 8.5 MG/DL (8.5-10.1); CARBON DIOXIDE LEVEL 25 MEQ/L (21-32); CHLORIDE LEVEL 104 MEQ/L (98-107); CHOLESTEROL LEVEL 358 MG/DL (<200); CHOLESTEROL RISK RATIO 12.344 (<5); CREATININE FOR GFR 1.02 MG/DL (0.70-1.30); FERRITIN 27 NG/ML (26-388); GLOMERULAR FILTRATION RATE > 60.0 (>56); GLUCOSE, FASTING 110 MG/DL (70-100); HDL CHOLESTEROL 29 MG/DL (>40); IRON (FE) 317 UG/DL (65-175); LDL CHOLESTEROL 267.2 MG/DL (<100); NON-HDL-C 329 MG/DL; PERCENT SATURATION 81.9 % (19.7-50.0); POTASSIUM SERUM 3.6 MEQ/L (3.5-5.1); SODIUM LEVEL 140 MEQ/L (136-145); TOTAL IRON BINDING CAPACITY 387 UG/DL (250-450); TOTAL PROTEIN 7.2 GM/DL (6.4-8.2); TRIGLYCERIDES LEVEL 309 MG/DL (<150)
[2017-12-12 20:26] LABS: ANISOCYTOSIS 1+; GIANT PLATELETS 1+
[2017-12-12 20:27] LABS: PLATELET ESTIMATE NORMAL (NORMAL)
== END ==
LOC: M SFHCCLAY 11:03
DX: E78.2 Mixed hyperlipidemia (principal); D50.9 Iron deficiency anemia, unspecified
CPT/HCPCS: 83550

== ENCOUNTER → 2018-02-09 | Outpatient (CLI) | payer MEDICARE | LOC: M PAIN 11:00 | DX: M51.26 Other intervertebral disc displacement, lumbar region (principal); M54.16 Radiculopathy, lumbar region; F17.210 Nicotine dependence, cigarettes, uncomplicated; Z79.899 Other long term (current) drug therapy; Z86.69 Personal history of other diseases of the nervous system and sense organs; Z87.820 Personal history of traumatic brain injury | CPT/HCPCS: G0463 ==

== ENCOUNTER 2018-03-19 07:12 | Emergency (ER) | payer MEDICARE ==
[2018-03-19] MEDS ORDERED: ISOVUE-370 76% 100ML VIAL (Q9967) As Ordered (08:27)
== END 2018-03-19 10:45 | disposition home or self-care (01) ==
LOC: M ED 07:12
DX: M27.2 Inflammatory conditions of jaws (principal); K02.9 Dental caries, unspecified; R51 Headache; I65.29 Occlusion and stenosis of unspecified carotid artery; Z91.81 History of falling; M54.9 Dorsalgia, unspecified; F41.9 Anxiety disorder, unspecified; F17.210 Nicotine dependence, cigarettes, uncomplicated; Z79.899 Other long term (current) drug therapy
CPT/HCPCS: Q9967

== ENCOUNTER → 2018-05-10 | Outpatient (REF) | payer MEDICARE ==
[2018-05-10 16:29] LABS: HEMATOCRIT 54.2 % (42.0-52.0); MEAN CORPUSCULAR HEMOGLOBIN 29.6 pg (27.0-33.0); MEAN CORPUSCULAR HGB CONC 35.1 g/dl (32.0-36.5); MEAN CORPUSCULAR VOLUME 84.6 fl (80.0-96.0); PLATELET COUNT, AUTOMATED 294 10^3/uL (150-450); RED BLOOD COUNT 6.41 10^6/uL (4.30-6.10)
[2018-05-10 16:34] LABS: ADD MANUAL DIFFER YES; DIFF SLIDE NUMBER 222; POSITIVE DIFF POS FLAG; WHITE BLOOD COUNT 13.8 10^3/uL (4.0-10.0)
[2018-05-10 16:40] LABS: ALBUMIN 4.2 GM/DL (3.2-5.2); ALBUMIN/GLOBULIN RATIO 1.05 (1.00-1.93); ALKALINE PHOSPHATASE 105 U/L (45-117); ALT/SGPT 20 U/L (12-78); ANION GAP 12 MEQ/L (8-16); AST/SGOT 10 U/L (7-37); BILIRUBIN,TOTAL 0.5 MG/DL (0.2-1.0); BLOOD UREA NITROGEN 25 MG/DL (7-18); CALCIUM LEVEL 9.5 MG/DL (8.5-10.1); CARBON DIOXIDE LEVEL 23 MEQ/L (21-32); CHLORIDE LEVEL 103 MEQ/L (98-107); CHOLESTEROL LEVEL 424 MG/DL (<200); CHOLESTEROL RISK RATIO 12.848 (<5); CREATININE FOR GFR 1.52 MG/DL (0.70-1.30); GLOMERULAR FILTRATION RATE 51.5 (>56); GLUCOSE, FASTING 126 MG/DL (70-100); HDL CHOLESTEROL 33 MG/DL (>40); IRON (FE) 239 UG/DL (65-175); LDL CHOLESTEROL 346 MG/DL (<100); NON-HDL-C 391 MG/DL; POTASSIUM SERUM 4.2 MEQ/L (3.5-5.1); SODIUM LEVEL 138 MEQ/L (136-145); TOTAL PROTEIN 8.2 GM/DL (6.4-8.2); TRIGLYCERIDES LEVEL 227 MG/DL (<150)
[2018-05-10 17:13] LABS: ATYPICAL LYMPH 18 % (0-5); EOSINOPHILS 1 % (0-5); LYMPHOCYTES 22 % (16-52); MONOCYTES 6 % (0-8); NEUTROPHILS 53 % (35-75); PLATELET ESTIMATE NORMAL (NORMAL)
== END ==
LOC: M SFHCCLAY 10:52
DX: E78.2 Mixed hyperlipidemia (principal); M51.36 Other intervertebral disc degeneration, lumbar region; D50.9 Iron deficiency anemia, unspecified
CPT/HCPCS: 83540

== ENCOUNTER → 2018-11-14 | Outpatient (CLI) | payer MEDICARE ==
[~2018-11-14] MED LIST changes: +AMIT50TA; +CLIN150C14 PO; +DIAZ5TAB; +FERR1TAB8; +HYDR-3715 PO; +IBUP-1022 PO; +IBUP200C25 PO; +IBUP80TA PO; -LIDOCAINE 2% INJ 100 MG/5 ML SDV (FOR ANES.) As Ordered ONE; -NS 1,000 ML IV SCH; +OMEP40CA2 PO; +PENI500T PO; +PREG100CA PO; -PROPOFOL 200 MG/20 ML VIAL As Ordered ONE; +TRAM50TA2; +TRAM50TA2 PO; +TYLE325T5 PO; +ZOLO25TA PO
--- NOTE | 2018-11-14 17:15 | REP ---
REASON: Trauma to the chin . Limited plain film examination of the mandible shows an abnormal lucency and cortical breech involving the mandible body on the left. There is a fracture involving the right mandibular body. This is poorly imaged using plain radiographic evaluation and CT is recommended for further evaluation. It should be stated that the left marker is indeed on the patient left side, although the images were flipped and presented in the opposite left right presentation normally expected. A phone call was placed to the technologist who performed the examination Nelli Tee and she confirmed that the left sided marker on the patient is indeed the patient's left side making the mandibular fracture indeed on the right.
== END ==
LOC: M CLY 13:33
PROVIDERS: ATTEND Nurse Practitioner Family
DX: S02.609A Fracture of mandible, unspecified, initial encounter for closed fracture (principal); W20.8XXA Other cause of strike by thrown, projected or falling object, initial encounter; Y92.9 Unspecified place or not applicable; E78.5 Hyperlipidemia, unspecified; R79.89 Other specified abnormal findings of blood chemistry
CPT/HCPCS: 70110; 80053; 80061; 83540; 85025; G0463

== ENCOUNTER → 2018-11-14 | Outpatient (REF) | payer MEDICARE ==
[2018-11-14 17:20] LABS: BASO # 0.1 10^3/uL (0.0-0.2); BASO % 0.5 % (0.0-1.0); EOS # 0.1 10^3/uL (0.0-0.50); EOS % 0.7 % (0.0-3.0); HEMATOCRIT 48.4 % (42.0-52.0); HEMOGLOBIN 16.4 g/dl (13.5-17.5); LYMPH # 3.5 10^3/uL (1.5-4.5); LYMPH % 33.4 % (24.0-44.0); MEAN CORPUSCULAR HEMOGLOBIN 30.3 pg (27.0-33.0); MEAN CORPUSCULAR HGB CONC 33.9 g/dl (32.0-36.5); MEAN CORPUSCULAR VOLUME 89.5 fl (80.0-96.0); MONO # 0.4 10^3/uL (0.0-0.8); MONO % 3.5 % (0.0-5.0); NEUTROPHILS # 6.4 10^3/uL (1.8-7.7); NEUTROPHILS % 61.6 % (36.0-66.0); PLATELET COUNT, AUTOMATED 279 10^3/uL (150-450); RED BLOOD COUNT 5.41 10^6/uL (4.30-6.10); WHITE BLOOD COUNT 10.3 10^3/uL (4.0-10.0)
[2018-11-14 17:23] LABS: ALBUMIN 3.5 GM/DL (3.2-5.2); ALT/SGPT 15 U/L (12-78); BILIRUBIN,TOTAL 0.3 MG/DL (0.2-1.0); BLOOD UREA NITROGEN 20 MG/DL (7-18); CALCIUM LEVEL 8.7 MG/DL (8.5-10.1); CARBON DIOXIDE LEVEL 29 MEQ/L (21-32); CHLORIDE LEVEL 100 MEQ/L (98-107); CHOLESTEROL LEVEL 235 MG/DL (<200); CHOLESTEROL RISK RATIO 6.351 (<5); CREATININE FOR GFR 0.85 MG/DL (0.70-1.30); GLOMERULAR FILTRATION RATE > 60.0 (>56); GLUCOSE, FASTING 96 MG/DL (70-100); HDL CHOLESTEROL 37 MG/DL (>40); IRON (FE) 42 UG/DL (65-175); LDL CHOLESTEROL 165 MG/DL (<100); NON-HDL-C 198 MG/DL; POTASSIUM SERUM 4.9 MEQ/L (3.5-5.1); SODIUM LEVEL 135 MEQ/L (136-145); TOTAL PROTEIN 7.2 GM/DL (6.4-8.2); TRIGLYCERIDES LEVEL 163 MG/DL (<150)
== END ==
LOC: M SFHCCLAY 12:50
PROVIDERS: ATTEND Nurse Practitioner Family
DX: R79.89 Other specified abnormal findings of blood chemistry (principal); E78.5 Hyperlipidemia, unspecified

== ENCOUNTER 2020-05-17 13:17 | Emergency (ER) | payer MEDICARE, MEDICAID ==
[~2020-05-17] VITALS: Ht 185.4 cm; Wt 88.6 kg
[2020-05-17 13:17] VITALS: BP 133/79
[~2020-05-17 13:17] MED LIST changes: -OMEP40CA2 PO; +OMEP40CA97 PO
[2020-05-17] MEDS ORDERED: PREG200C (13:29)
[2020-05-17] MEDS ORDERED: TRAM50TA2 (13:29)
--- NOTE | 2020-05-17 14:08 | REP ---
INDICATION: trauma COMPARISON: None. TECHNIQUE: Four views FINDINGS: There is no fracture or dislocation. Mineralization and joint spaces are normal. There are no calcifications or foreign bodies. IMPRESSION: Negative left wrist.. <Electronically signed by Storm Soto > 05/17/20 [id number]
== END 2020-05-17 13:55 | disposition left against medical advice (07) ==
LOC: M ED 13:17
DX: S69.92XA Unspecified injury of left wrist, hand and finger(s), initial encounter (principal); W22.09XA Striking against other stationary object, initial encounter; Y92.092 Bedroom in other non-institutional residence as the place of occurrence of the external cause; Y93.89 Activity, other specified; Y99.8 Other external cause status; M54.9 Dorsalgia, unspecified; Z79.899 Other long term (current) drug therapy

== ENCOUNTER → 2020-05-22 | Outpatient (CLI) | payer MEDICARE, MEDICAID ==
[~2020-05-22] MED LIST changes: +PREG200C
--- NOTE | 2020-05-22 14:04 | REP ---
INDICATION: PAIN. COMPARISON: May 17, 2020.. TECHNIQUE: AP and lateral views of the left wrist are obtained. FINDINGS: AP and lateral views of the left wrist demonstrate normal bones, joints and soft tissues. Joint spaces are preserved. No fracture or subluxation is seen. There is a tiny accessory ossicle adjacent to the ulnar styloid tip unchanged. This has rounded contours and is not felt to be acute. IMPRESSION: No acute bony abnormality. No fracture seen. <Electronically signed by Terence Stoddard > 05/22/20 1400
[2020-05-22 14:34] LABS: BASO # 0.1 10^3/uL (0.0-0.2); BASO % 0.5 % (0.0-1.0); EOS # 0.2 10^3/uL (0.0-0.5); EOS % 1.2 % (0.0-3.0); HEMATOCRIT 48.7 % (42.0-52.0); HEMOGLOBIN 16.1 g/dl (13.5-17.5); LYMPH # 4.9 10^3/uL (1.5-5.0); LYMPH % 40.2 % (24.0-44.0); MEAN CORPUSCULAR HEMOGLOBIN 29.2 pg (27.0-33.0); MEAN CORPUSCULAR HGB CONC 33.1 g/dl (32.0-36.5); MEAN CORPUSCULAR VOLUME 88.2 fl (80.0-96.0); MONO # 0.5 10^3/uL (0.0-0.8); MONO % 4.1 % (0.0-5.0); NEUTROPHILS # 6.6 10^3/uL (1.5-8.5); NEUTROPHILS % 53.8 % (36.0-66.0); PLATELET COUNT, AUTOMATED 241 10^3/uL (150-450); RED BLOOD COUNT 5.52 10^6/uL (4.30-6.10); WHITE BLOOD COUNT 12.3 10^3/uL (4.0-10.0)
[2020-05-22 14:46] LABS: ALT/SGPT 19 U/L (12-78); BLOOD UREA NITROGEN 16 MG/DL (7-18); CARBON DIOXIDE LEVEL 23 MEQ/L (21-32); CHLORIDE LEVEL 108 MEQ/L (98-107); CREATININE FOR GFR 1.03 MG/DL (0.70-1.30); GLOMERULAR FILTRATION RATE > 60.0 (>56); GLUCOSE, FASTING 99 MG/DL (70-100); POTASSIUM SERUM 4.1 MEQ/L (3.5-5.1); SODIUM LEVEL 137 MEQ/L (136-145)
[2020-05-22 14:47] LABS: ALBUMIN 3.6 GM/DL (3.2-5.2); BILIRUBIN,TOTAL 0.2 MG/DL (0.2-1.0); CHOLESTEROL LEVEL 250 MG/DL (<200); CHOLESTEROL RISK RATIO 6.097 (<5); FREE T4 1.04 NG/DL (0.76-1.46); HDL CHOLESTEROL 41 MG/DL (>40); IRON (FE) 80 UG/DL (65-175); LDL CHOLESTEROL 170 MG/DL (<100); NON-HDL-C 209 MG/DL; TOTAL PROTEIN 6.9 GM/DL (6.4-8.2); TRIGLYCERIDES LEVEL 196 MG/DL (<150)
== END ==
LOC: M WUC 11:34
PROVIDERS: ATTEND Nurse Practitioner Family
DX: R79.89 Other specified abnormal findings of blood chemistry (principal); E78.5 Hyperlipidemia, unspecified; M25.532 Pain in left wrist

== ENCOUNTER → 2020-10-07 | Outpatient (REF) | payer MEDICARE, MEDICAID ==
[~2020-10-07] MED LIST changes: -CLIN150C14 PO; +CLIN150C15 PO
[2020-10-07 16:44] LABS: ALBUMIN 3.8 GM/DL (3.2-5.2); ALT/SGPT 18 U/L (12-78); BILIRUBIN,TOTAL 0.3 MG/DL (0.2-1.0); BLOOD UREA NITROGEN 18 MG/DL (7-18); CALCIUM LEVEL 9.1 MG/DL (8.5-10.1); CARBON DIOXIDE LEVEL 32 MEQ/L (21-32); CHLORIDE LEVEL 100 MEQ/L (98-107); CHOLESTEROL LEVEL 292 MG/DL (<200); CHOLESTEROL RISK RATIO 6.952 (<5); CREATININE FOR GFR 0.79 MG/DL (0.70-1.30); GLOMERULAR FILTRATION RATE > 60.0 (>56); GLUCOSE, FASTING 81 MG/DL (70-100); HDL CHOLESTEROL 42 MG/DL (>40); LDL CHOLESTEROL 196 MG/DL (<100); NON-HDL-C 250 MG/DL; POTASSIUM SERUM 4.1 MEQ/L (3.5-5.1); SODIUM LEVEL 137 MEQ/L (136-145); TOTAL PROTEIN 7.5 GM/DL (6.4-8.2); TRIGLYCERIDES LEVEL 270 MG/DL (<150)
== END ==
LOC: M SFHCCLAY 13:04
PROVIDERS: ATTEND Nurse Practitioner Family
DX: E78.5 Hyperlipidemia, unspecified (principal)
CPT/HCPCS: 80053; 80061; G0463

== ENCOUNTER → 2021-01-07 | Outpatient (CLI) | payer MEDICARE, MEDICAID ==
[~2021-01-07] MED LIST changes: -CLIN150C15 PO; +CLIN150C17 PO; +OMEP40CA4 PO; -OMEP40CA97 PO
--- NOTE | 2021-01-07 11:01 | REP ---
INDICATION: LEFT HIP PAIN. COMPARISON: Comparison AP pelvis March 19, 2017.. TECHNIQUE: AP and frogleg views of the left hip are provided. FINDINGS: The left femoral head is smooth and rounded. Hip joint space is preserved. There is mild inferior femoroacetabular spurring. Periarticular soft tissues are unremarkable. No bony destructive lesion is seen. IMPRESSION: Mild inferior femoro acetabular spurring consistent with early osteoarthritis. No acute bony abnormality. <Electronically signed by Terence Stoddard > 01/07/21 [id number]
== END ==
LOC: M CLY 10:01
PROVIDERS: ATTEND Nurse Practitioner Family
DX: M25.752 Osteophyte, left hip (principal); M25.552 Pain in left hip
CPT/HCPCS: 73502; G0463

== ENCOUNTER → 2021-05-13 | Outpatient (REF) | payer MEDICARE, MEDICAID ==
[2021-05-14 11:51] LABS: ALBUMIN 3.5 GM/DL (3.2-5.2); ALT/SGPT 19 U/L (12-78); BILIRUBIN,TOTAL 0.5 MG/DL (0.2-1.0); BLOOD UREA NITROGEN 19 MG/DL (7-18); CARBON DIOXIDE LEVEL 26 MEQ/L (21-32); CHLORIDE LEVEL 108 MEQ/L (98-107); CHOLESTEROL LEVEL 284 MG/DL (<200); CHOLESTEROL RISK RATIO 8.114 (<5); CREATININE FOR GFR 0.86 MG/DL (0.70-1.30); GLOMERULAR FILTRATION RATE > 60.0 (>56); GLUCOSE, FASTING 89 MG/DL (70-100); HDL CHOLESTEROL 35 MG/DL (>40); LDL CHOLESTEROL 227 MG/DL (<100); NON-HDL-C 249 MG/DL; POTASSIUM SERUM 3.6 MEQ/L (3.5-5.1); SODIUM LEVEL 141 MEQ/L (136-145); TOTAL PROTEIN 6.8 GM/DL (6.4-8.2); TRIGLYCERIDES LEVEL 110 MG/DL (<150)
== END ==
LOC: M SFHCCLAY 14:10
PROVIDERS: ATTEND Nurse Practitioner Family
DX: E78.5 Hyperlipidemia, unspecified (principal)
CPT/HCPCS: 80053; 80061; G0463

== ENCOUNTER → 2022-07-21 | Outpatient (REF) | payer MEDICARE, MEDICAID ==
[2022-07-21 17:23] LABS: BASO % 0.3 % (0.0-1.0); EOS # 0.1 10^3/uL (0.0-0.5); EOS % 1.5 % (0.0-3.0); HEMOGLOBIN 16.2 g/dl (13.5-17.5); LYMPH # 4.2 10^3/uL (1.5-5.0); LYMPH % 48.7 % (24.0-44.0); MEAN CORPUSCULAR HGB CONC 34.5 g/dl (32.0-36.5); MONO # 0.6 10^3/uL (0.0-0.8); MONO % 7.1 % (2.0-8.0); NEUTROPHILS # 3.6 10^3/uL (1.5-8.5); NEUTROPHILS % 42.1 % (36.0-66.0); PLATELET COUNT, AUTOMATED 251 10^3/uL (150-450); RED BLOOD COUNT 5.22 10^6/uL (4.30-6.10); WHITE BLOOD COUNT 8.7 10^3/uL (4.0-10.0)
[2022-07-21 18:00] LABS: IRON (FE) 106 UG/DL (65-175)
[2022-07-21 18:07] LABS: ALBUMIN 3.7 G/DL (3.2-5.2); ALKALINE PHOSPHATASE 77 U/L (46-116); ALT/SGPT 43 U/L (7.0-40); AST/SGOT 30 U/L (<34); BILIRUBIN,TOTAL 0.3 MG/DL (0.3-1.2); BLOOD UREA NITROGEN 17 MG/DL (9-23); CALCIUM LEVEL 9.4 MG/DL (8.5-10.1); CARBON DIOXIDE LEVEL 30 MMOL/L (20-31); CHLORIDE LEVEL 103 MMOL/L (98-107); CHOLESTEROL LEVEL 254 MG/DL (<200); CHOLESTEROL RISK RATIO 5.72 (<5); CREATININE FOR GFR 0.99 MG/DL (0.70-1.30); FREE T4 1.15 NG/DL (0.89-1.76); GLOMERULAR FILTRATION RATE > 60.0 (>56); GLUCOSE, FASTING 87 MG/DL (60-100); HDL CHOLESTEROL 44.4 MG/DL (>40); LDL CHOLESTEROL 153.6 MG/DL (<100); NON-HDL-C 210 MG/DL; POTASSIUM SERUM 4.4 MMOL/L (3.5-5.1); SODIUM LEVEL 138 MMOL/L (136-145); THYROID STIMULATING HORMONE 3.034 uIU/ML (0.55-4.78); TOTAL PROTEIN 6.8 G/DL (5.7-8.2); TRIGLYCERIDES LEVEL 280 MG/DL (<150)
[2022-07-21 18:10] LABS: HEMOGLOBIN A1c 5.5 % (4.0-6.0)
== END ==
LOC: M SFHCCLAY 08:37
PROVIDERS: ATTEND Nurse Practitioner Family
DX: F17.200 Nicotine dependence, unspecified, uncomplicated (principal); E78.5 Hyperlipidemia, unspecified; R79.89 Other specified abnormal findings of blood chemistry; Z13.1 Encounter for screening for diabetes mellitus

== ENCOUNTER → 2022-10-20 | Outpatient (CLI) | payer MEDICARE, MEDICAID | LOC: M CLY 10:28 | PROVIDERS: ATTEND Nurse Practitioner Family | DX: M17.0 Bilateral primary osteoarthritis of knee (principal); M76.891 Other specified enthesopathies of right lower limb, excluding foot; M76.892 Other specified enthesopathies of left lower limb, excluding foot ==

== ENCOUNTER → 2023-01-19 | Outpatient (REF) | payer MEDICARE, MEDICAID ==
[2023-01-19 17:46] LABS: ALBUMIN 3.8 G/DL (3.2-5.2); ALKALINE PHOSPHATASE 82 U/L (46-116); ALT/SGPT 28 U/L (7.0-40); AST/SGOT 18 U/L (<34); BILIRUBIN,TOTAL 0.3 MG/DL (0.3-1.2); BLOOD UREA NITROGEN 14 MG/DL (9-23); CALCIUM LEVEL 9.1 MG/DL (8.5-10.1); CARBON DIOXIDE LEVEL 31 MMOL/L (20-31); CHLORIDE LEVEL 105 MMOL/L (98-107); CHOLESTEROL LEVEL 228 MG/DL (<200); CHOLESTEROL RISK RATIO 5.15 (<5); CREATININE FOR GFR 0.91 MG/DL (0.70-1.30); GLOMERULAR FILTRATION RATE > 60.0 (>56); GLUCOSE, FASTING 97 MG/DL (60-100); HDL CHOLESTEROL 44.2 MG/DL (>40); NON-HDL-C 183.8 MG/DL; POTASSIUM SERUM 4.4 MMOL/L (3.5-5.1); SODIUM LEVEL 140 MMOL/L (136-145); TOTAL PROTEIN 6.8 G/DL (5.7-8.2); TRIGLYCERIDES LEVEL 119 MG/DL (<150)
[2023-01-19 18:02] LABS: HEMOGLOBIN A1c 5.8 % (4.0-6.0)
== END ==
LOC: M SFHCCLAY 11:45
PROVIDERS: ATTEND Nurse Practitioner Family
DX: F17.200 Nicotine dependence, unspecified, uncomplicated (principal); E78.5 Hyperlipidemia, unspecified; R79.89 Other specified abnormal findings of blood chemistry; Z13.1 Encounter for screening for diabetes mellitus

== ENCOUNTER 2024-04-01 01:35 | Emergency (ER) | payer MEDICARE, MEDICAID ==
[~2024-04-01] VITALS: Ht 182.9 cm; Wt 90.9 kg
[~2024-04-01 01:35] MED LIST changes: -PREG200C; +PREG200C2
[2024-04-01 01:46] VITALS: BP 157/99; TEMP 97.6; O2SAT 99
== END 2024-04-01 02:55 | disposition home or self-care (01) ==
LOC: M ED 01:35
DX: F43.0 Acute stress reaction (principal); F17.210 Nicotine dependence, cigarettes, uncomplicated; F12.10 Cannabis abuse, uncomplicated

== ENCOUNTER 2025-02-07 08:42 | Emergency (ER) | payer MEDICARE, MEDICAID ==
[~2025-02-07] VITALS: Ht 185.4 cm; Wt 87.3 kg
[~2025-02-07 08:42] MED LIST changes: -IBUP-1022 PO; +IBUP600T42 PO; +PREG-35 PO; -PREG100CA PO
[2025-02-07] MEDS: ceFAZolin SODIUM 2 GM in DEXTROSE 5% (D5W) ADV/MINI-BAG 50 ML IV ONE (09:18)
[2025-02-07] MEDS: TETANUS/DIPHTH/ACEL. PERTUSSIS 0.5 ML SYR IM.IMMUN ONE (09:19)
[2025-02-07 09:24] LABS: PLATELET COUNT, AUTOMATED 252 10^3/uL (150-450)
[2025-02-07 09:30] LABS: CALCIUM LEVEL 9.1 MG/DL (8.5-10.1); CARBON DIOXIDE LEVEL 27 MMOL/L (20-31); CHLORIDE LEVEL 103 MMOL/L (98-107); CREATININE FOR GFR 0.87 MG/DL (0.70-1.30); GLOMERULAR FILTRATION RATE > 90.0 (>56); POTASSIUM SERUM 3.7 MMOL/L (3.5-5.1); SODIUM LEVEL 139 MMOL/L (136-145)
[2025-02-07] MEDS: KETOROLAC 30 MG/ML 1 ML VIAL IV ONE (09:34)
[2025-02-07] MEDS ORDERED: CEPH500C PO (11:39)
[2025-02-07] MEDS: HYDROMORPHONE HCL 0.5 MG/0.5 ML SYRINGE IV PRN (12:43)
[2025-02-07] MEDS: LIDOCAINE 2% W/EPINEPHrine 20 ML VIAL **PRES FREE INJ ONE (13:30)
[2025-02-07] MEDS ORDERED: PERC5TAB12 PO (13:42)
[2025-02-07 13:59] VITALS: BP 130/80; TEMP 97.5; O2SAT 99
== END 2025-02-07 14:05 | disposition home or self-care (01) ==
LOC: M ED 08:42
DX: S66.922A Laceration of unspecified muscle, fascia and tendon at wrist and hand level, left hand, initial encounter (principal); Y92.019 Unspecified place in single-family (private) house as the place of occurrence of the external cause; Y93.9 Activity, unspecified; Y99.9 Unspecified external cause status; W26.8XXA Contact with other sharp object(s), not elsewhere classified, initial encounter; Z23 Encounter for immunization; Z79.2 Long term (current) use of antibiotics; Z79.899 Other long term (current) drug therapy
CPT/HCPCS: 12001; 73110; 80048; 85027; 90471; 90715; 96365; 96366; 96375; 99284; J0690; J1171; J1885

== ENCOUNTER 2025-02-19 08:35 | Day surgery (SDC) | payer MEDICARE, MEDICAID ==
[~2025-02-19] VITALS: Ht 182.9 cm; Wt 89.1 kg
[~2025-02-19 08:35] MED LIST changes: +CEPH500C PO; +PERC5TAB12 PO
[2025-02-19] MEDS ORDERED: MIDAZOLAM INJ 2 MG/2 ML VIAL As Ordered ONE (09:17)
[2025-02-19] MEDS ORDERED: LIDOCAINE 2% 100 MG/5 ML SDV (FOR ANES.) As Ordered ONE (09:18)
[2025-02-19] MEDS ORDERED: ACETAMINOPHEN 1000MG/100ML IV BAG As Ordered ONE (09:18)
[2025-02-19] MEDS ORDERED: dexAMETHasone 4 MG/ML 1 ML VIAL As Ordered ONE (09:19)
[2025-02-19] MEDS ORDERED: KETOROLAC 30 MG/ML 1 ML VIAL As Ordered ONE (09:19)
[2025-02-19] MEDS ORDERED: ONDANSETRON 4MG 2ML VIAL As Ordered ONE (09:19)
[2025-02-19] MEDS ORDERED: LR 1,000 ML IV SCH (09:20)
[2025-02-19] MEDS ORDERED: GLYCOPYRROLATE INJ 0.2 MG/ML 2 ML VIAL As Ordered ONE (12:13)
[2025-02-19] MEDS ORDERED: ATROPINE SULF 0.4 MG/ML 1 ML VIAL As Ordered ONE (12:15)
[2025-02-19] MEDS ORDERED: PHENYLephrine 500MCG 5ML (100MCG/ML) SYRINGE As Ordered ONE (12:18)
[2025-02-19] MEDS ORDERED: VASOPRESSIN INJ 20UNITS/ML 1ML VIAL As Ordered ONE (12:20)
[2025-02-19] MEDS ORDERED: ONDANSETRON 4MG 2ML VIAL IV PRN (13:35)
[2025-02-19] MEDS ORDERED: PERCOCET PO (13:49)
[2025-02-19] MEDS: MORPHINE 2 MG/ML 1 ML VIAL IV PRN (13:56)
[2025-02-19 15:00] VITALS: BP 148/85; TEMP 97.2; O2SAT 99
[2025-02-19] MEDS ORDERED: MORPHINE 4 MG/ML 1 ML VIAL IV PRN (15:00)
== END 2025-02-19 15:28 | disposition home or self-care (01) ==
LOC: M SDC 08:35
PROVIDERS: ATTEND Orthopaedic Surgery Hand Surgery
DX: S61.512A Laceration without foreign body of left wrist, initial encounter (principal); S66.222A Laceration of extensor muscle, fascia and tendon of left thumb at wrist and hand level, initial encounter; W26.0XXA Contact with knife, initial encounter; Y92.007 Garden or yard of unspecified non-institutional (private) residence as the place of occurrence of the external cause; Y93.H9 Activity, other involving exterior property and land maintenance, building and construction; Z79.2 Long term (current) use of antibiotics; F17.200 Nicotine dependence, unspecified, uncomplicated
CPT/HCPCS: 26418; J0131; J0461; J0665; J0690; J1100; J1596; J1885; J2250; J2371; J2405; J2598; J3010

== ENCOUNTER → 2025-02-27 | Outpatient (REF) | payer MEDICARE, MEDICAID ==
[~2025-02-27] MED LIST changes: +PERCOCET PO
[2025-02-27 19:37] LABS: BASO # 0.0 10^3/uL (0.0-0.2); BASO % 0.4 % (0.0-1.0); EOS # 0.1 10^3/uL (0.0-0.5); EOS % 1.7 % (0.0-3.0); LYMPH # 4.5 10^3/uL (1.5-5.0); LYMPH % 55.1 % (24.0-44.0); MONO # 0.5 10^3/uL (0.0-0.8); MONO % 6.2 % (2.0-8.0); NEUTROPHILS # 3.0 10^3/uL (1.5-8.5); NEUTROPHILS % 36.5 % (36.0-66.0); PLATELET COUNT, AUTOMATED 269 10^3/uL (150-450)
[2025-02-27 19:45] LABS: ALT/SGPT 25 U/L (7.0-40); AST/SGOT 27 U/L (<34); CALCIUM LEVEL 9.6 MG/DL (8.5-10.1); CARBON DIOXIDE LEVEL 27 MMOL/L (20-31); CHLORIDE LEVEL 106 MMOL/L (98-107); CHOLESTEROL LEVEL 243 MG/DL (<200); CHOLESTEROL RISK RATIO 4.85 (<5); CREATININE FOR GFR 0.92 MG/DL (0.70-1.30); GLOMERULAR FILTRATION RATE > 90.0 (>56); LDL CHOLESTEROL 150.7 MG/DL (<100); NON-HDL-C 192.9 MG/DL; POTASSIUM SERUM 4.2 MMOL/L (3.5-5.1); SODIUM LEVEL 138 MMOL/L (136-145); TRIGLYCERIDES LEVEL 211 MG/DL (<150)
[2025-02-27 19:46] LABS: FREE T4 1.36 NG/DL (0.89-1.76)
[2025-02-27 19:57] LABS: ESTIMATED AVERAGE GLUCOSE 111.0 MG/DL (60-110)
== END ==
LOC: M SFHCCLAY 11:30
PROVIDERS: ATTEND Nurse Practitioner Family
DX: R79.89 Other specified abnormal findings of blood chemistry (principal); E78.5 Hyperlipidemia, unspecified; F17.200 Nicotine dependence, unspecified, uncomplicated; Z13.1 Encounter for screening for diabetes mellitus